=== PATIENT | male | born 1990 | race Caucasian/White ===

== ENCOUNTER 2022-12-20 17:29 | Emergency (ER) | payer OTHER ==
[~2022-12-20] VITALS: Ht 188 cm; Wt 131.0 kg
[2022-12-20 18:23] VITALS: BP 133/89
[2022-12-20] MEDS ORDERED: methylPREDNISolone SOD SUCC 125 MG/2 ML VL IM ONE (20:45)
[2022-12-20] MEDS ORDERED: KETOROLAC TROMETH 30 MG/ML 1ML VIAL IM ONE (20:45)
[2022-12-20] MEDS ORDERED: IBUP800T26 PO (20:53)
== END 2022-12-20 21:04 | disposition home or self-care (01) ==
LOC: ER 17:29
DX: S83.512A Sprain of anterior cruciate ligament of left knee, initial encounter (principal); S83.8X2A Sprain of other specified parts of left knee, initial encounter; X50.1XXA Overexertion from prolonged static or awkward postures, initial encounter; Y93.89 Activity, other specified; Y92.89 Other specified places as the place of occurrence of the external cause; Y99.8 Other external cause status
CPT/HCPCS: 29505; 73562; 96372; 99284; J1885; J2930

== ENCOUNTER 2023-03-24 10:02 | Inpatient (IN) | payer OTHER ==
[~2023-03-24] VITALS: Ht 188 cm; Wt 127.9 kg
[~2023-03-24 10:02] MED LIST: IBUP-1455 PO
[2023-03-24] MEDS ORDERED: ENOXAPARIN SOD 150 MG/1 ML SYRINGE SC ONE (12:15)
[2023-03-24 13:06] LABS: Basophils # (auto) 0 10 ^3/uL (0-0.2); Basophils % (auto) 0.4 % (0.0-2.0); Eosinophils # (auto) 0.2 10 ^3/uL (0-0.8); Eosinophils % (auto) 2.8 % (0.0-7.0); Hematocrit 46.7 % (41.0-53.0); Hemoglobin 15.6 g/dL (13.5-17.5); Lymphocytes # (auto) 1.5 10 ^3/uL (0.4-5.4); Lymphocytes % (auto) 20.2 % (10.0-50.0); Mean Corpuscular Hemoglobin 29.4 pg (28.0-32.0); Mean Corpuscular Hgb Conc. 33.5 g/dL (32.0-36.0); Mean Corpuscular Volume 87.7 fL (80.0-100.0); Monocytes # (auto) 1.1 10 ^3/uL (0-1.3); Monocytes % (auto) 13.9 % (0.0-12.0); Neutrophils # (auto) 4.8 10 ^3/uL (1.6-8.6); Neutrophils % (auto) 62.7 % (37.0-80.0); Red Blood Cells 5.32 10^6/uL (4.5-5.90); Red Cell Distribution Width 13.9 % (11.8-14.3); White Blood Cell 7.6 10^3/uL (4.4-10.8)
[2023-03-24 13:22] LABS: INR 1.08 (0.9-1.15); Partial Thromboplastin Time 32.4 SEC (24.5-34.5)
[2023-03-24 13:26] LABS: Albumin 3.8 g/dL (3.4-5.0); Calcium 8.9 mg/dL (8.5-10.1); Potassium 4.7 mmol/L (3.5-5.1)
[2023-03-24 13:30] LABS: BUN/Creatinine Ratio 15.3 (10.0-20.0); Bilirubin, Total 0.6 mg/dL (0.2-1.0); Total Protein 7.1 g/dL (6.4-8.2)
[2023-03-24] MEDS ORDERED: NITROGLYCERIN 0.4 MG SL TAB SL PRN (13:30)
[2023-03-24] MEDS ORDERED: MORPHINE SULFATE INJ 2 MG/ml SYRG IV PRN (13:30)
[2023-03-24] MEDS ORDERED: IBUPROFEN 800 MG TAB PO PRN (13:30)
[2023-03-24] MEDS ORDERED: ONDANSETRON HCL 4 MG/2 ML VIAL IV PRN (13:30)
[2023-03-24] MEDS ORDERED: ACETAMINOPHEN 325 MG TAB PO PRN (13:30)
[2023-03-24] MEDS ORDERED: DOCUSATE SOD 100 MG CAP PO PRN (13:30)
[2023-03-25] VITALS (8 sets, daily range): BP systolic 102–108; BP diastolic 61–73; PULSE 63–81; RESP 16–21; TEMP 97.6–98.4; O2SAT 94–97
[2023-03-25] MEDS: ENOXAPARIN SOD 150 MG/1 ML SYRINGE SC SCH ×2 (01:36→09:54)
[2023-03-25] MEDS: HYDROcodone-ACET 5/325MG TAB PO PRN ×2 (01:46→07:08)
[2023-03-25] MEDS ORDERED: HYDR-4072 (06:14)
[2023-03-25 07:08] LABS: Basophils # (auto) 0 10 ^3/uL (0-0.2); Basophils % (auto) 0.6 % (0.0-2.0); Eosinophils # (auto) 0.5 10 ^3/uL (0-0.8); Hematocrit 43.4 % (41.0-53.0); Hemoglobin 14.4 g/dL (13.5-17.5); Lymphocytes # (auto) 1.7 10 ^3/uL (0.4-5.4); Lymphocytes % (auto) 22.6 % (10.0-50.0); Mean Corpuscular Hemoglobin 29.1 pg (28.0-32.0); Mean Corpuscular Hgb Conc. 33.2 g/dL (32.0-36.0); Mean Corpuscular Volume 87.8 fL (80.0-100.0); Monocytes # (auto) 1.1 10 ^3/uL (0-1.3); Monocytes % (auto) 14.9 % (0.0-12.0); Neutrophils # (auto) 4.3 10 ^3/uL (1.6-8.6); Neutrophils % (auto) 55.9 % (37.0-80.0); Nucleated Red Blood Cells % 0.1 %; Red Blood Cells 4.94 10^6/uL (4.5-5.90); Red Cell Distribution Width 13.6 % (11.8-14.3); White Blood Cell 7.6 10^3/uL (4.4-10.8)
[2023-03-25 07:35] LABS: Potassium 4.2 mmol/L (3.5-5.1)
[2023-03-25 07:41] LABS: Albumin 3.4 g/dL (3.4-5.0); BUN/Creatinine Ratio 15.6 (10.0-20.0); Bilirubin, Total 0.8 mg/dL (0.2-1.0); Calcium 8.4 mg/dL (8.5-10.1); Total Protein 6.9 g/dL (6.4-8.2)
[2023-03-25] MEDS ORDERED: PANTOPRAZOLE 40 MG TAB PO SCH (10:00)
[2023-03-25] MEDS ORDERED: APIX5TAB PO (14:48)
[2023-03-25] MEDS ORDERED: ASPI-498 PO (15:56)
== END 2023-03-25 17:58 | disposition home or self-care (01) | DRG 301 ==
LOC: ER 10:02 → EDBD 10:02 → TELE 13:33 → TELE-CENTR 03-25 02:00 → TELE-EAST 03-25 07:10
PROVIDERS: ADMIT Internal Medicine; ATTEND Nurse Practitioner Family
DX: I82.442 Acute embolism and thrombosis of left tibial vein (principal); E66.9 Obesity, unspecified; Z96.659 Presence of unspecified artificial knee joint; F17.290 Nicotine dependence, other tobacco product, uncomplicated; Z71.3 Dietary counseling and surveillance; Z68.36 Body mass index [BMI] 36.0-36.9, adult
CPT/HCPCS: 36415; 80053; 84484; 85025; 85610; 85730; 93971; G0378